=== PATIENT | male | born 1940 | race Two or more races ===

== ENCOUNTER 2022-09-06 11:53 | Emergency (ER) | payer OTHER ==
[~2022-09-06] VITALS: Ht 172.7 cm; Wt 80.0 kg
[2022-09-06 13:35] LABS: Basophils # (auto) 0 10 ^3/uL (0-0.2); Basophils % (auto) 0.5 % (0.0-2.0); Eosinophils # (auto) 0 10 ^3/uL (0-0.8); Eosinophils % (auto) 0.2 % (0.0-7.0); Hematocrit 43.2 % (41.0-53.0); Hemoglobin 14.2 g/dL (13.5-17.5); Lymphocytes # (auto) 0.3 10 ^3/uL (0.4-5.4); Mean Corpuscular Hemoglobin 30.3 pg (28.0-32.0); Mean Corpuscular Hgb Conc. 32.9 g/dL (32.0-36.0); Mean Corpuscular Volume 92.1 fL (80.0-100.0); Monocytes # (auto) 0.5 10 ^3/uL (0-1.3); Neutrophils # (auto) 7.6 10 ^3/uL (1.6-8.6); Neutrophils % (auto) 89.3 % (37.0-80.0); Red Blood Cells 4.69 10^6/uL (4.5-5.90); Red Cell Distribution Width 14.9 % (11.8-14.3); White Blood Cell 8.5 10^3/uL (4.4-10.8)
[2022-09-06 13:48] VITALS: BP 166/81
[2022-09-06 13:54] LABS: Albumin 3.3 g/dL (3.4-5.0); Anion Gap 8 (5-15); Blood Alcohol < 3.0 mg/dL (0-5); Blood Urea Nitrogen 37 mg/dL (7-18); Calcium 8.8 mg/dL (8.5-10.1); Carbon Dioxide 27 mmol/L (21-32); Chloride 106 mmol/L (98-107); Glucose 82 mg/dL (74-106); Sodium 141 mmol/L (136-145)
[2022-09-06 13:56] LABS: Alanine Aminotransferase 27 U/L (16-61); Aspartate Aminotransferase 26 U/L (15-37); BUN/Creatinine Ratio 16.7; GFR African American 37 mL/min; GFR Non-African American 31 mL/min
[2022-09-06 14:03] LABS: Alkaline Phosphatase 100 U/L (45-117); Bilirubin, Total 0.7 mg/dL (0.2-1.0); Total Protein 6.3 g/dL (6.4-8.2)
[2022-09-06] MEDS ORDERED: SODIUM CHLORIDE 0.9% 1,000 ML IV ONE (15:15)
== END 2022-09-06 18:00 | disposition home or self-care (01) ==
LOC: ER 12:05
DX: S00.83XA Contusion of other part of head, initial encounter (principal); R55 Syncope and collapse; N17.9 Acute kidney failure, unspecified; E11.649 Type 2 diabetes mellitus with hypoglycemia without coma; W19.XXXA Unspecified fall, initial encounter; Y93.89 Activity, other specified; Y92.89 Other specified places as the place of occurrence of the external cause; Y99.8 Other external cause status
CPT/HCPCS: 36415; 70450; 71045; 72125; 80053; 80320; 82140; 82962; 83735; 84484; 85025; 93005; 96360; 99285; J7030